=== PATIENT | female | born 1940 | race Caucasian/White ===

== ENCOUNTER 2021-07-26 15:24 | Emergency (ER) | payer MEDICARE, OTHER ==
[2021-07-26] MEDS ORDERED: SODIUM CHLORIDE 0.9% 500 ML 500 ML IV STA (15:52)
--- NOTE | 2021-07-26 15:59 | ED ---
General Adult HPI - General Chief complaint: Nausea/Vomiting/Diarrhea Stated complaint: nausea/vomiting Time Seen by Provider: 07/26/21 15:36 Source: patient Mode of arrival: ambulatory Limitations: no limitations - History of Present Illness Initial comments: 80 year-old female patient presents to the emergency department sent by her physician for abnormal CT results. Patient had routine colonoscopy last week. States she was then sent for CT lungs 3-4 days later and was called today, informed she had a "hole in her bowel", and instructed to come to the ER immediately. She states she has been feeling fine. Today she developed nausea, vomiting, and diarrhea. Denies any fever, chills, or abdominal pain. Denies hematemesis, hematochezia, or melena. Patient denies any recent rash, cough, shortness of breath, chest pain, constipation, back pain, numbness, tingling, dizziness, weakness, hematuria, dysuria, urinary urgency, urinary frequency, headache, visual changes, or any other complaints. - Related Data Home Medications Medication Instructions Recorded Confirmed Amoxic-Pot Clav 875-125Mg 1 tab PO Q12HR 07/26/21 07/26/21 [Augmentin 875-125] Aspirin EC [Ecotrin Low Dose] 81 mg PO HS 07/26/21 07/26/21 Calcium Carbonate [Calcium] 600 mg PO HS 07/26/21 07/26/21 Cetirizine HCl [Zyrtec] 10 mg PO HS PRN 07/26/21 07/26/21 Cyclobenzaprine [Flexeril] 5 mg PO HS PRN 07/26/21 07/26/21 Docusate [Colace] 100 mg PO DAILY 07/26/21 07/26/21 FLUoxetine HCL [PROzac] 20 mg PO BID 07/26/21 07/26/21 Latanoprost [Xalatan 0.005%] 1 drop BOTH EYES HS 07/26/21 07/26/21 Menthol-Zinc Oxide Oint 1 applic TOPICAL DAILY PRN 07/26/21 07/26/21 [Calmoseptine Oint] Mirabegron [Myrbetriq] 50 mg PO DAILY 07/26/21 07/26/21 Multivitamins, Thera [Multivitamin 1 tab PO DAILY 07/26/21 07/26/21 (formulary)] Polyethylene Glycol 3350 [Miralax] 17 gm PO DAILY 07/26/21 07/26/21 Pravastatin Sodium [Pravachol] 20 mg PO HS 07/26/21 07/26/21 Verapamil HCl [Verapamil ER] 240 mg PO DAILY 07/26/21 07/26/21 lamoTRIgine [LaMICtal] 100 mg PO HS 07/26/21 07/26/21 metroNIDAZOLE [Flagyl] 500 mg PO TID 07/26/21 07/26/21 Allergies Allergy/AdvReac Type Severity Reaction Status Date / Time No Known Allergies Allergy Verified 07/26/21 16:38 Review of Systems ROS Statement: Those systems with pertinent positive or pertinent negative responses have been documented in the HPI. ROS Other: All systems not noted in ROS Statement are negative. Past Medical History Past Medical History: Hyperlipidemia, Hypertension History of Any Multi-Drug Resistant Organisms: None Reported Past Surgical History: Orthopedic Surgery Past Psychological History: No Psychological Hx Reported Smoking Status: Current every day smoker Past Alcohol Use History: None Reported Past Drug Use History: None Reported General Exam Limitations: no limitations General appearance: alert, in no apparent distress, other (This is a well- developed, well-nourished elderly female patient in no acute distress. Vital signs upon presentation temperature 98.7F, pulse 97, respirations 18, blood pressure 157/106, pulse ox 92% on room air.) Eye exam: Present: normal appearance, PERRL, EOMI. Absent: scleral icterus, conjunctival injection, periorbital swelling ENT exam: Present: normal exam, normal oropharynx, mucous membranes moist Respiratory exam: Present: normal lung sounds bilaterally. Absent: respiratory distress, wheezes, rales, rhonchi, stridor Cardiovascular Exam: Present: regular rate, normal rhythm, normal heart sounds. Absent: systolic murmur, diastolic murmur, rubs, gallop, clicks GI/Abdominal exam: Present: soft, normal bowel sounds. Absent: distended, tenderness, guarding, rebound, rigid Neurological exam: Present: alert, oriented X3, CN II-XII intact Psychiatric exam: Present: normal affect, normal mood Skin exam: Present: warm, dry, intact, normal color. Absent: rash Course Vital Signs 07/26/21 07/26/21 07/26/21 15:28 17:15 19:30 Temperature 98.7 F 98.0 F 97.9 F Pulse Rate 97 93 87 Respiratory 18 16 17 Rate Blood Pressure 157/106 142/92 141/88 O2 Sat by Pulse 92 L 95 98 Oximetry Medical Decision Making - Medical Decision Making 80-year-old female patient presents to the emergency department today for evaluation after being informed of an abnormal CT outpatient. Patient had CT last week which apparently showed evidence for bowel perforation. Physical examination upon arrival was unremarkable. Abdomen is soft and nontender. Patient did admit to having episode of vomiting and diarrhea today. She is afebrile, vital signs. Labs reviewed and are unremarkable. CT abdomen and pelvis with contrast was obtained today showed no evidence for bowel perforation. Upon reevaluation patient is resting comfortably, sitting a chair at the bedside expressing desire to go home. I did discuss findings and results with her. Case discussed with my attending Dr. Valero. Return parameters were discussed in detail. She verbalizes understanding and agrees with this plan. - Lab Data Result diagrams: 07/26/21 17:01 07/26/21 17:01 Lab Results 07/26/21 07/26/21 07/26/21 Range/Units 17:01 17:01 17:01 WBC 11.0 H (3.8-10.6) k/uL RBC 5.07 (3.80-5.40) m/uL Hgb 14.5 (11.4-16.0) gm/dL Hct 44.4 (34.0-46.0) % MCV 87.6 (80.0-100.0) fL MCH 28.5 (25.0-35.0) pg MCHC 32.6 (31.0-37.0) g/dL RDW 13.7 (11.5-15.5) % Plt Count 295 (150-450) k/uL MPV 7.7 Neutrophils % 87 % Lymphocytes % 8 % Monocytes % 4 % Eosinophils % 1 % Basophils % 0 % Neutrophils # 9.5 H (1.3-7.7) k/uL Lymphocytes # 0.8 L (1.0-4.8) k/uL Monocytes # 0.5 (0-1.0) k/uL Eosinophils # 0.1 (0-0.7) k/uL Basophils # 0.0 (0-0.2) k/uL Sodium 134 L (137-145) mmol/L Potassium 4.2 (3.5-5.1) mmol/L Chloride 105 (98-107) mmol/L Carbon Dioxide 21 L (22-30) mmol/L Anion Gap 8 mmol/L BUN 14 (7-17) mg/dL Creatinine 0.74 (0.52-1.04) mg/dL Est GFR (CKD-EPI)AfAm 90 (>60 ml/min/1.73 sqM) Est GFR (CKD-EPI)NonAf 78 (>60 ml/min/1.73 sqM) Glucose 121 H (74-99) mg/dL Plasma Lactic Acid Humble (0.7-2.0) mmol/L Calcium 9.6 (8.4-10.2) mg/dL Total Bilirubin 0.5 (0.2-1.3) mg/dL AST 155 H (14-36) U/L ALT 96 H (4-34) U/L Alkaline Phosphatase 128 H (38-126) U/L Total Protein 7.5 (6.3-8.2) g/dL Albumin 4.1 (3.5-5.0) g/dL Lipase 180 (23-300) U/L Urine Color Yellow Urine Appearance Clear (Clear) Urine pH 7.0 (5.0-8.0) Ur Specific [place] >1.050 H (1.001-1.035) Urine Protein 1+ H (Negative) Urine Glucose (UA) Negative (Negative) Urine Ketones Negative (Negative) Urine Blood Trace H (Negative) Urine Nitrite Negative (Negative) Urine Bilirubin Negative (Negative) Urine Urobilinogen <2.0 (<2.0) mg/dL Ur Leukocyte Esterase Small H (Negative) Urine RBC 10 H (0-5) /hpf Urine WBC 2 (0-5) /hpf Ur Squamous Epith Cells 7 H (0-4) /hpf Urine Bacteria Rare H (None) /hpf 07/26/21 Range/Units 17:01 WBC (3.8-10.6) k/uL RBC (3.80-5.40) m/uL Hgb (11.4-16.0) gm/dL Hct (34.0-46.0) % MCV (80.0-100.0) fL MCH (25.0-35.0) pg MCHC (31.0-37.0) g/dL RDW (11.5-15.5) % Plt Count (150-450) k/uL MPV Neutrophils % % Lymphocytes % % Monocytes % % Eosinophils % % Basophils % % Neutrophils # (1.3-7.7) k/uL Lymphocytes # (1.0-4.8) k/uL Monocytes # (0-1.0) k/uL Eosinophils # (0-0.7) k/uL Basophils # (0-0.2) k/uL Sodium (137-145) mmol/L Potassium (3.5-5.1) mmol/L Chloride (98-107) mmol/L Carbon Dioxide (22-30) mmol/L Anion Gap mmol/L BUN (7-17) mg/dL Creatinine (0.52-1.04) mg/dL Est GFR (CKD-EPI)AfAm (>60 ml/min/1.73 sqM) Est GFR (CKD-EPI)NonAf (>60 ml/min/1.73 sqM) Glucose (74-99) mg/dL Plasma Lactic Acid Humble 1.0 (0.7-2.0) mmol/L Calcium (8.4-10.2) mg/dL Total Bilirubin (0.2-1.3) mg/dL AST (14-36) U/L ALT (4-34) U/L Alkaline Phosphatase (38-126) U/L Total Protein (6.3-8.2) g/dL Albumin (3.5-5.0) g/dL Lipase (23-300) U/L Urine Color Urine Appearance (Clear) Urine pH (5.0-8.0) Ur Specific [place] (1.001-1.035) Urine Protein (Negative) Urine Glucose (UA) (Negative) Urine Ketones (Negative) Urine Blood (Negative) Urine Nitrite (Negative) Urine Bilirubin (Negative) Urine Urobilinogen (<2.0) mg/dL Ur Leukocyte Esterase (Negative) Urine RBC (0-5) /hpf Urine WBC (0-5) /hpf Ur Squamous Epith Cells (0-4) /hpf Urine Bacteria (None) /hpf - Radiology Data Radiology results: report reviewed, image reviewed CT abdomen and pelvis is obtained with contrast. Report was reviewed in its entirety. Impression by Dr. Moe shows some colonic diverticulosis without diverticulitis. Mildly dilated intrahepatic bile ducts. No obstructing lesion seen. No evidence of bowel perforation. Disposition Clinical Impression: Nausea and vomiting, Diarrhea Disposition: HOME SELF-CARE Condition: Good Instructions (If sedation given, give patient instructions): Acute Nausea and Vomiting (ED), Acute Diarrhea (ED) Additional Instructions: Start with clear liquid diet and advance as tolerated. Follow up with your primary care physician for recheck in 1-2 days. Return to the emergency department for any new, worsening, or concerning symptoms. Is patient prescribed a controlled substance at d/c from ED?: No Referrals: None,Stated [Primary Care Provider] - 1-2 days Time of Disposition: 19:20
[2021-07-26 17:14] LABS: Basophils % (A) 0 %; Eosinophils # (A) 0.1 k/uL (0-0.7); Eosinophils % (A) 1 %; HCT 44.4 % (34.0-46.0); HGB 14.5 gm/dL (11.4-16.0); Lymphocytes # (A) 0.8 k/uL (1.0-4.8); Lymphocytes % (A) 8 %; MCH 28.5 pg (25.0-35.0); MCHC 32.6 g/dL (31.0-37.0); MCV 87.6 fL (80.0-100.0); Mean Platelet Volume 7.7; Monocytes # (A) 0.5 k/uL (0-1.0); Monocytes % (A) 4 %; Neutrophils # (A) 9.5 k/uL (1.3-7.7); Neutrophils % (A) 87 %; Platelet Count 295 k/uL (150-450); RBC 5.07 m/uL (3.80-5.40); RDW 13.7 % (11.5-15.5)
[2021-07-26 17:27] LABS: Albumin 4.1 g/dL (3.5-5.0); Calcium 9.6 mg/dL (8.4-10.2); Potassium 4.2 mmol/L (3.5-5.1); Total Bilirubin 0.5 mg/dL (0.2-1.3); Total Protein 7.5 g/dL (6.3-8.2)
--- NOTE | 2021-07-26 18:35 | CT ---
EXAMINATION TYPE: CT abdomen pelvis w con DATE OF EXAM: 07/26/2021 COMPARISON: HISTORY: Patient was told she may have perforated bowel post colonoscopy. CT DLP: 990.3 mGycm Automated exposure control for dose reduction was used. CONTRAST: Performed with IV Contrast, patient injected with 100 mL of Isovue 300. Images obtained from the diaphragm to the floor the pelvis with IV contrast. Lung bases are clear of consolidation. There is no pleural effusion. Heart size is normal. There is n o pericardial effusion. There is small hiatal hernia. There is mild enlargement of the biliary tree. There is cholecystectomy. Common bile duct measures 8 mm. There is 2 cm cyst in the inferior right lo be of the liver. Spleen is intact. Stomach is intact. There is no evidence of pancreatic mass. There is epigastric ventral hernia that contains some omental fat which is incarcerated and hernia measures 4 cm in diameter. There is no adrenal mass. Kidneys show satisfactory contrast opacification. There is no hydronephrosi s. There are cortical cysts in the posterior left kidney that measure 2 cm. There is no hydronephrosi s. Ureters are not dilated. There is no retroperitoneal adenopathy. Bladder distends smoothly. There is no inguinal hernia. There is no free fluid in the pelvis. There are numerous sigmoid diverticula. There is no diverticulitis. Lumbar vertebra have normal alignment. There is vacuum disc at L4-5 and L5-S1 with significant disc s pace narrowing. There is hypertrophic multilevel lumbar facet arthropathy. There is no compression fr acture. The bony pelvis is intact. The hip joints are intact. There is neural stimulator in the sacru m. Proximal femurs are intact. There is no mesenteric edema. There is no ascites or free air. There is no sign of a bowel obstructio n. The cecum is in the midline. The appendix extends to the right side. Appendix appears normal. IMPRESSION: There is some colonic diverticulosis without diverticulitis. Mildly dilated intrahepatic bile ducts. No obstructing lesion seen. No evidence of bowel perforation.
[2021-07-26 19:02] LABS: Appearance,Urine Clear (Clear); Bacteria,Urine Rare /hpf; Bilirubin,Urine Negative (Negative); Blood,Urine Trace (Negative); Color,Urine Yellow; Glucose,Urine (UA) Negative (Negative); Ketones,Urine Negative (Negative); Leukocyte Esterase,Urine Small (Negative); Nitrite,Urine Negative (Negative); Protein,Urine 1+ (Negative); RBC,Urine 10 /hpf (0-5); Squamous Epithelial Cell,Urine 7 /hpf (0-4); Urobilinogen,Urine <2.0 mg/dL (<2.0); WBC,Urine 2 /hpf (0-5)
[2021-07-26 19:04] LABS: Specific Gravity,Urine >1.050 (1.001-1.035)
[2021-07-26 19:32] VITALS: BP 141/88; PULSE 87; RESP 17; TEMP 97.9
== END 2021-07-26 19:30 | disposition home or self-care (01) ==
LOC: EC 15:24
DX: R11.2 Nausea with vomiting, unspecified (principal); R19.7 Diarrhea, unspecified; I10 Essential (primary) hypertension; E78.5 Hyperlipidemia, unspecified; F17.200 Nicotine dependence, unspecified, uncomplicated; Z79.82 Long term (current) use of aspirin; Z79.899 Other long term (current) drug therapy
CPT/HCPCS: 36415; 80053; 83605; 83690; 85025; 81001; 74177; 99284; Q9967

== ENCOUNTER → 2023-11-16 | Day surgery (SDC) | payer MEDICARE, OTHER ==
--- NOTE | 2023-11-19 14:46 | MM ---
Reason for Exam: Post Procedure Mammogram. Last mammogram was performed 23 year(s) and 11 month(s) ago. Patient History: Menarche at age 14. Postmenopausal. Excisional Biopsy on the Left side. Sister had breast cancer. Risk Values: Almaz 5 year model risk: 3.4%. NCI Lifetime model risk: 4.6%. Prior Study Comparison: 12/04/1999 Bilateral Diagnostic Mammogram, [place]. Tissue Density: Right: The breast tissue is heterogeneously dense. This may lower the sensitivity of mammography. Pathology Description: Location: 10 o'clock. Marker Left Behind. Needle Type: Mammotome Cores: 7 Gauge: 13 The procedure of ultrasound guided core biopsy was explained to the patient. Benefits, alternatives, and risks were discussed. An informed consent was then obtained. The 10:00 mass is identified and targeted for biopsy, possible previous biopsy site. The patient was placed in supine positioning for imaging and for the procedure. The overlying skin was prepped and draped in usual sterile fashion. Lidocaine buffered with bicarbonate was used as anesthetic into the skin and subcutaneous tissue up to area of concern in the 10:00 right breast. Under ultrasound guidance, a 13-gauge vacuum-assisted mammotome Elite biopsy gun was used to obtain 7 core samples. Following this, a coil clip was left in lesion. The patient tolerated the procedure well without any immediate complication. The patient was kept in the radiology department for short stay after the procedure and then discharged home in stable condition. Postprocedure mammogram: The patient was transferred to mammography for physician ordered post procedure mammogram for clip placement verification. Postprocedure mammogram shows clip in appropriate position adjacent to the previous top-hat clip corresponding to the mammographic nodularity. IMPRESSION: Successful, uncomplicated ultrasound guided core biopsy of mammographic nodularity 10:00 right breast corresponding to site of previous biopsy. Full pathology results to follow. Pathology Results: Result: Benign, Intramammary lymph node. RIGHT BREAST, 10:00 POSITION 7 CM FROM NIPPLE, CORE BIOPSY: Fragments of reactive lymphoid tissue (see note). Notes In order to confirm the absence of metastatic carcinoma, immunohistochemistry is performed with appropriate controls on blocks A1 and A2. CK7 staining on block A1 and panctyokeratin (AE1/AE3) staining on block A2 are both negative for metastatic carcinoma. Intradepartmental consultation with Dr. Ritchie Dumont is in agreement with the assessment of reactive lymphoid tissue. Overall Assessment: Benign Assessment: MG diagnostic mammo RT wo CAD - Right: Benign, BI-RAD 2. Management: Diagnostic Mammogram of the right breast in 6 months. Electronically signed and approved by: Braxton Shaw M.D. Radiologist
== END ==
LOC: RADUSWWP 09:20
PROVIDERS: ATTEND Surgery
DX: R92.8 Other abnormal and inconclusive findings on diagnostic imaging of breast (principal); Z80.3 Family history of malignant neoplasm of breast
CPT/HCPCS: 88305; 88342; 88341; 77065; 19083; A4648

== ENCOUNTER → 2023-12-11 | Outpatient (CLI) | payer MEDICARE, OTHER ==
--- NOTE | 2023-12-11 14:03 | P.GSHP ---
History of Present Illness H&P Date: 12/11/23 Chief Complaint: intramammary lymph node [place] is an 83 year old female seen in consultation for Dr. Quintana regarding a right breast abnormality. She had a bilateral mammogram on 10-16-23 which led to a right breast ultrasound. The ultrasound showed a 1.1 cm lesion for which biopsy was recommended. The biopsy was done on 11-16-23 and was consistent with a benign lymph node. This was felt to be concordant and repeat in 6 months recommended. She does feel anything of concern in her breast. She has not had any recent trauma or infection in her breast. She has not had any surgery on her breast. She tolerated the biopsy without difficulty. Patient has a colostomy after a colonoscopy, that was about 1 year ago Caffeine: 2 cups/day nicotine: stopped 2 years ago, smoked for 50 years COPD chocolate: occasional Family History: 8 sisters and 1 brother sister: breast cancer sister: cancer ? type sister: colon cancer Hormonal History: menarche: 13 , breast fed: no, age at first : 27 menopause: about 51 Surgical History: bilateral knee rotator cuff colostomy (perf after colonoscopy) cataract surgery Medical History: COPD HTN Social History: nicotine: as above alcohol: none drugs: none - Constitutional Constitutional: Denies chills, Denies fever - EENT Eyes: denies blurred vision, denies pain Ears: deny: decreased hearing, tinnitus Ears, nose, mouth and throat: Denies headache, Denies sore throat - Breasts Breasts: bilateral: as per HPI - Cardiovascular Cardiovascular: Denies chest pain, Denies shortness of breath - Respiratory Respiratory: Denies cough, Denies 7 - Gastrointestinal Comment: PUD Gastrointestinal: Reports as per HPI, Denies abdominal pain, Denies diarrhea, Denies nausea, Denies vomiting - Genitourinary (Female) Genitourinary: Reports dysuria, Denies hematuria - Menstruation Menstruation: Reports postmenopausal - Integumentary Integumentary: Denies pruritus, Denies rash - Neurological Neurological: Denies numbness, Denies weakness - Psychiatric Psychiatric: Denies anxiety, Denies depression - Endocrine Endocrine: Denies fatigue, Denies weight change - Hematologic/Lymphatic Comment: none - Allergic/Immunologic Allergic/Immunologic: Reports as per HPI Past Medical History Past Medical History: COPD, Eye Disorder, Hyperlipidemia, Hypertension Additional Past Medical History / Comment(s): glaucoma COPD. History of Any Multi-Drug Resistant Organisms: None Reported Past Surgical History: Orthopedic Surgery Additional Past Surgical History / Comment(s): 2022 colostomy, bowel punctured during colonoscopy Past Anesthesia/Blood Transfusion Reactions: No Reported Reaction Past Psychological History: Anxiety Smoking Status: Former smoker Past Alcohol Use History: Rare Additional Past Alcohol Use History / Comment(s): quit smoking 2020 Past Drug Use History: None Reported Medications and Allergies Home Medications Medication Instructions Recorded Confirmed Type Calcium Carbonate [Calcium] 600 mg PO HS 07/26/21 12/11/23 History Cyclobenzaprine [Flexeril] 5 mg PO HS PRN 07/26/21 12/11/23 History Docusate [Colace] 100 mg PO DAILY 07/26/21 12/11/23 History FLUoxetine HCL [PROzac] 20 mg PO BID 07/26/21 12/11/23 History Latanoprost [Xalatan 0.005%] 1 drop BOTH EYES HS 07/26/21 12/11/23 History Menthol-Zinc Oxide Oint 1 applic TOPICAL DAILY PRN 07/26/21 12/11/23 History [Calmoseptine Oint] Mirabegron [Myrbetriq] 50 mg PO DAILY 07/26/21 12/11/23 History Multivitamins, Thera [Multivitamin 1 tab PO DAILY 07/26/21 12/11/23 History (formulary)] Pravastatin Sodium [Pravachol] 20 mg PO HS 07/26/21 12/11/23 History Verapamil HCl [Verapamil ER] 240 mg PO DAILY 07/26/21 12/11/23 History lamoTRIgine [LaMICtal] 100 mg PO HS 07/26/21 12/11/23 History traMADol HCL 50 mg PO Q6H PRN 11/11/23 12/11/23 History Allergies Allergy/AdvReac Type Severity Reaction Status Date / Time No Known Allergies Allergy Verified 12/11/23 13:35 Surgical - Exam Vital Signs Temp Pulse Resp BP Pulse Ox 97.4 F L 74 14 90/49 91 L 12/11/23 13:37 12/11/23 13:37 12/11/23 13:37 12/11/23 13:37 12/11/23 13:37 - General no distress - Eyes normal ocular movement - Neck trachea midline - Respiratory normal respiratory effort, clear to auscultation - Cardiovascular Heart Sounds: normal: S1, S2 - Abdomen ostomy in LLQ - Integumentary normal turgor - Neurologic no disoriented, no combative - Musculoskeletal normal gait - Psychiatric oriented to time, oriented to person, oriented to place, speech is normal, memory intact Breast Exam: BRA: 40B Inspection: bilateral grade 3 ptosis Patient: Right breast: Multi positional exam fibrocystic changes no dominant masses or nodules of concern no evidence of any infection or hematoma Right axilla: No adenopathy of concern Left breast: Multi positional exam fibrocystic changes no dominant masses or nodules of concern, Left axilla: No adenopathy of concern Results Mammogram and ultrasound results reviewed Assessment and Plan Assessment: Impression: Benign concordant right breast biopsy benign lymph node Plan: Repeat right breast mammogram and ultrasound in 6 months with examination at that time Patient to follow-up sooner any questions or concerns CC: Dr. Quintana
[2023-12-11 14:04] VITALS: BP 90/49; PULSE 74; RESP 14; TEMP 97.4
== END ==
LOC: WWCWWP 12:09
PROVIDERS: ATTEND Surgery
DX: D36.0 Benign neoplasm of lymph nodes (principal); E78.5 Hyperlipidemia, unspecified; I10 Essential (primary) hypertension; J44.9 Chronic obstructive pulmonary disease, unspecified; F41.9 Anxiety disorder, unspecified; Z80.3 Family history of malignant neoplasm of breast; Z87.891 Personal history of nicotine dependence; Z93.3 Colostomy status; Z86.69 Personal history of other diseases of the nervous system and sense organs; Z79.899 Other long term (current) drug therapy

== ENCOUNTER → 2024-05-16 | Outpatient (CLI) | payer MEDICARE, OTHER ==
--- NOTE | 2024-05-16 13:25 | USB ---
Reason for Exam: Follow-up at short interval from prior study. Patient History: Menarche at age 14. Postmenopausal. 11/16/2023, Benign US biopsy breast VAD RT on the right side. Excisional Biopsy on the Left side. Sister had breast cancer. Risk Values: Almaz 5 year model risk: 4.4%. NCI Lifetime model risk: 5.8%. Technique: Method: Targeted. Prior Study Comparison: 12/04/1999 Bilateral Diagnostic Mammogram, [facility]. 11/16/2023 Right MG diagnostic mammo RT wo CAD, [facility]. Findings: The lateral section of the breast of the right breast, the axilla of the right breast and the retroareolar of the right breast were scanned. Previously sampled mass is noted at the right 10:00 position 7 cm from the nipple and appears unchanged and currently measures 1 cm x 5 mm. There is a small hypoechoic 2 small to characterize lesion at the right 10:00 position 3 cm from the nipple measuring 4 x 3 mm. Six-month follow-up ultrasound is advised. Overall Assessment: Probably benign, BI-RAD 3 Management: Diagnostic Breast Ultrasound of the right breast in 6 months. A clinical breast exam by your physician is recommended on an annual basis and results should be correlated with mammographic findings. This exam should not preclude additional follow-up of suspicious palpable abnormalities. Results were given to the patient verbally at the time of exam. Electronically signed and approved by: Ren Stevenson M.D. Radiologis
--- NOTE | 2024-05-16 13:25 | MM ---
Reason for Exam: Follow-up at short interval from prior study. Last screening mammogram was performed 7 month(s) ago. Patient History: Menarche at age 14. Postmenopausal. 11/16/2023, Benign US biopsy breast VAD RT on the right side. Excisional Biopsy on the Left side. Sister had breast cancer. Risk Values: Almaz 5 year model risk: 4.4%. NCI Lifetime model risk: 5.8%. Prior Study Comparison: 12/04/1999 Bilateral Diagnostic Mammogram, [place]. 11/16/2023 Right MG diagnostic mammo RT wo CAD, [facility]. Tissue Density: Right: There are scattered areas of fibroglandular density. Findings: Analyzed By CAD. Previously sampled mass upper outer right breast is noted with microclip marker seen. Scattered chronic appearing nodularity is noted throughout the right breast. Ultrasound is recommended. Overall Assessment: Incomplete: need additional imaging evaluation, BI-RAD 0 Management: Diagnostic Breast Ultrasound of the right breast. . Results were given to the patient verbally at the time of exam. Patient should continue monthly self-breast exams. A clinical breast exam by your physician is recommended on an annual basis. This exam should not preclude additional follow-up of suspicious palpable abnormalities. Note on Almaz scores and lifetime risk: 1. A Almaz score greater than 3% is considered moderate risk. If this is the case, consider specialist referral to assess eligibility for a risk reducing agent. 2. If overall lifetime risk for the development of breast cancer is 20% or higher, the patient may qualify for future screening with alternating mammogram and breast MRI. Electronically signed and approved by: Ren Stevenson M.D. Radiologis
== END | disposition home or self-care (01) ==
LOC: RADMAMWWP 12:35
PROVIDERS: ATTEND Surgery
DX: R92.8 Other abnormal and inconclusive findings on diagnostic imaging of breast (principal); R92.321 Mammographic fibroglandular density, right breast; Z78.0 Asymptomatic menopausal state; Z80.3 Family history of malignant neoplasm of breast
CPT/HCPCS: 77065; 76642; G0279; 77061